=== PATIENT | male | born 1975 | race American Indian/Alaskan Native ===

== ENCOUNTER 2021-11-11 08:41 | Emergency (ER) | payer SELFPAY ==
[2021-11-11] MEDS ORDERED: ALBUTEROL 2.5 MG/3 ML NEBU IH ONE (08:54)
[2021-11-11] MEDS ORDERED: FUROSEMIDE 40 MG/4 ML INJ IV ONE (08:54)
[2021-11-11] MEDS ORDERED: IPRATROPIUM 0.02% NEBU 2.5 ML IH ONE (08:54)
[2021-11-11 09:37] LABS: Basophils # (Auto) 0.1 K/mm3 (0.0-0.1); Basophils % (Auto) 0.7 % (0.0-1.8); Eosinophils # (Auto) 0.1 K/mm3 (0.0-0.4); Eosinophils % (Auto) 0.8 % (0.0-4.3); Hematocrit 45.1 % (35.5-45.6); Hemoglobin 14.9 gm/dl (11.8-15.2); Lymphocytes # (Auto) 1.5 K/mm3 (1.2-5.4); Lymphocytes % (Auto) 16.9 % (13.4-35.0); Mean Corpuscular HGB Conc 33 % (32-34); Mean Corpuscular Volume 82 fl (84-94); Monocytes # (Auto) 0.7 K/mm3 (0.0-0.8); Monocytes % (Auto) 7.7 % (0.0-7.3); Platelet Count 235 K/mm3 (140-440); Red Blood Count 5.51 M/mm3 (3.65-5.03)
[2021-11-11 09:55] LABS: INR 1.09 (0.87-1.13)
[2021-11-11 09:59] LABS: Creatine Kinase MB 4.5 ng/mL (0.0-4.0)
[2021-11-11 10:01] LABS: Alanine Aminotransferase 53 units/L (7-56); Albumin 3.9 g/dL (3.9-5); BUN/Creatinine Ratio 11; Blood Urea Nitrogen 11 mg/dL (9-20); Calcium 8.9 mg/dL (8.4-10.2); Hemolysis Index 3
--- NOTE | 2021-11-11 10:06 | XRay Report ---
CHEST 1 VIEW 11/11/2021 9:10 AM INDICATION / CLINICAL INFORMATION: Dyspnea. COMPARISON: None available. FINDINGS: SUPPORT DEVICES: None. HEART / MEDIASTINUM: There is mild to moderate generalized enlargement of the cardiopericardial silho uette. There is prominence of the central pulmonary vessels. LUNGS / PLEURA: Interstitial lung markings are diffusely increased, right greater than left. There is more confluent parenchymal opacity in the lower lung zones medially, greater on the right. No signif icant pleural effusion. No pneumothorax. ADDITIONAL FINDINGS: No significant additional findings. IMPRESSION: Enlargement of the cardiopericardial silhouette with associated congestive heart failure/ asymmetric pulmonary edema, right greater than left. Signer Name: Trevor Mcknight MD Signed: 11/11/2021 10:01 AM Workstation Name: [id number]
[2021-11-11 10:17] LABS: Bilirubin,Urine NEG (Negative); Blood,Urine NEG (Negative); Color,Urine Straw (Yellow); Urobilinogen,Urine < 2.0 mg/dL (<2.0)
[2021-11-11] MEDS ORDERED: METOPROLOL TARTRATE 5 MG/5 ML INJ IV ONE (10:21)
[2021-11-11 10:25] LABS: Amphetamine Screen,Urine Negative; Benzodiazepines Screen,Urine Negative; Cannabinoid Screen,Urine Negative; Cocaine Screen,Urine Negative; Methadone Screen,Urine Negative; Opiate Screen,Urine Negative
[2021-11-11 10:47] LABS: Bacteria,Urine 1+ /HPF (Negative); Mucus,Urine FEW /HPF
[2021-11-11] MEDS ORDERED: hydrALAZINE 20 MG/1 ML INJ IV ONE (12:40)
--- NOTE | 2021-11-11 13:33 | Emergency Department Report ---
ED General Adult HPI - General Chief complaint: Dyspnea/Respdistress Stated complaint: RUSS PUI?: No Time Seen by Provider: 11/11/21 08:54 Source: patient, EMS Mode of arrival: Stretcher Limitations: No Limitations - History of Present Illness Initial comments: PT ARRIVING FROM HOME FOR SOB, 91% RA. LABORED. BGL 222 pt has HTN and CHF but non complinat with meds no chets [ain n wekaness no stroke like symtpoms -: Gradual, days(s) Severity scale (0 -10): 0 Consistency: constant Improves with: none Worsens with: none Associated Symptoms: chest pain, shortness of breath Treatments Prior to Arrival: none - Related Data Previous Rx's Medication Instructions Recorded Last Taken Type Furosemide [Lasix] 20 mg PO QDAY #30 tablet 11/11/21 Unknown Rx carvediloL [Coreg] 3.125 mg PO BID #30 tablet 11/11/21 Unknown Rx lisinopriL [Lisinopril] 20 mg PO DAILY #30 11/11/21 Unknown Rx Allergies Allergy/AdvReac Type Severity Reaction Status Date / Time Penicillins AdvReac Unknown Verified 11/11/21 10:04 ED Review of Systems ROS: Stated complaint: RUSS Other details as noted in HPI Constitutional: denies: chills, fever Eyes: denies: eye pain, eye discharge, vision change ENT: denies: ear pain, throat pain Respiratory: denies: cough, shortness of breath, wheezing Cardiovascular: denies: chest pain, palpitations Endocrine: no symptoms reported Gastrointestinal: denies: abdominal pain, nausea, diarrhea Genitourinary: denies: urgency, dysuria Musculoskeletal: denies: back pain, joint swelling, arthralgia Skin: denies: rash, lesions Neurological: denies: headache, weakness, paresthesias Psychiatric: denies: anxiety, depression Hematological/Lymphatic: denies: easy bleeding, easy bruising ED Past Medical Hx - Past Medical History Hx Hypertension: Yes Hx Congestive Heart Failure: Yes Hx Diabetes: Yes (type 2) Additional medical history: right leg ABK - Surgical History Past Surgical History?: Yes - Social History Smoking Status: Never Smoker Substance Use Type: Marijuana - Medications Home Medications: Home Medications Medication Instructions Recorded Confirmed Last Taken Type Furosemide [Lasix] 20 mg PO QDAY #30 tablet 11/11/21 Unknown Rx carvediloL [Coreg] 3.125 mg PO BID #30 tablet 11/11/21 Unknown Rx lisinopriL [Lisinopril] 20 mg PO DAILY #30 11/11/21 Unknown Rx ED Physical Exam - General Limitations: No Limitations General appearance: alert, obese - Head Head exam: Present: atraumatic, normocephalic - Eye Eye exam: Present: normal appearance - ENT ENT exam: Present: mucous membranes moist - Neck Neck exam: Present: normal inspection - Respiratory Respiratory exam: Present: normal lung sounds bilaterally, rales. Absent: respiratory distress - Cardiovascular Cardiovascular Exam: Present: normal rhythm, tachycardia. Absent: systolic murmur, diastolic murmur, rubs, gallop - GI/Abdominal GI/Abdominal exam: Present: soft, normal bowel sounds - Rectal Rectal exam: Present: deferred - Extremities Exam Extremities exam: Present: normal inspection, pedal edema - Back Exam Back exam: Present: normal inspection - Neurological Exam Neurological exam: Present: alert, oriented X3 - Psychiatric Psychiatric exam: Present: normal affect, normal mood - Skin Skin exam: Present: warm, dry, intact, normal color. Absent: rash ED Course Vital Signs 11/11/21 11/11/21 11/11/21 08:45 08:59 09:15 Temperature 99.2 F 98.5 F Pulse Rate 115 H 113 H 114 H Respiratory 22 25 H 23 Rate Blood Pressure 190/125 190/125 Blood Pressure 193/124 190/125 [Left] O2 Sat by Pulse 100 97 98 Oximetry 11/11/21 11/11/21 11/11/21 09:30 09:45 10:00 Temperature Pulse Rate 114 H 110 H 118 H Respiratory 18 20 45 H Rate Blood Pressure 190/125 185/124 185/124 Blood Pressure [Left] O2 Sat by Pulse 97 96 96 Oximetry 11/11/21 11/11/21 11/11/21 10:15 10:30 10:34 Temperature Pulse Rate 110 H 107 H 96 H Respiratory 21 24 Rate Blood Pressure 182/126 182/126 177/120 Blood Pressure [Left] O2 Sat by Pulse 97 96 Oximetry 11/11/21 11/11/21 11/11/21 10:45 11:00 11:15 Temperature Pulse Rate 105 H 104 H 96 H Respiratory 22 26 H 19 Rate Blood Pressure 177/120 177/120 170/115 Blood Pressure [Left] O2 Sat by Pulse 96 98 96 Oximetry 11/11/21 11/11/21 11/11/21 11:30 11:45 12:00 Temperature Pulse Rate 98 H 100 H 95 H Respiratory 19 27 H 18 Rate Blood Pressure 170/115 173/123 173/123 Blood Pressure [Left] O2 Sat by Pulse 95 95 97 Oximetry 11/11/21 11/11/21 11/11/21 12:31 12:45 13:01 Temperature Pulse Rate 98 H Respiratory 18 Rate Blood Pressure 184/126 184/129 190/135 Blood Pressure [Left] O2 Sat by Pulse 96 97 99 Oximetry 11/11/21 11/11/21 13:03 13:15 Temperature Pulse Rate 98 H 100 H Respiratory 29 H Rate Blood Pressure 190/135 192/121 Blood Pressure [Left] O2 Sat by Pulse 99 Oximetry ED Medical Decision Making - Lab Data Result diagrams: 11/11/21 09:12 11/11/21 09:12 - EKG Data -: EKG Interpreted by Ne EKG shows normal: sinus rhythm Rate: tachycardia - EKG Data Interpretation: nonspecific ST-T wave ama - Radiology Data Radiology results: report reviewed, image reviewed - Medical Decision Making work up showed CHF with cardiomegaly , lasix given and rt , lopressor and hydralazine given , pt doens;t take his meds and doesn;t rememebr which ones, will start empiric HF treatment with follow up with [facility] , vss no distress imrpoved back to [facility] Critical care attestation.: If time is entered above; I have spent that time in minutes in the direct care of this critically ill patient, excluding procedure time. ED Disposition Clinical Impression: SOB (shortness of breath), CHF exacerbation, Non compliance w medication regimen, Uncontrolled hypertension Disposition: 01 HOME / SELF CARE / HOMELESS Is pt being admited?: No Does the pt Need Aspirin: No Condition: Stable Instructions: Hypertension (ED), Shortness of Breath, Adult, [id number], Heart Failure, Self Care, Managing Your Hypertension Prescriptions: carvediloL [Coreg] 3.125 mg PO BID #30 tablet Furosemide [Lasix] 20 mg PO QDAY #30 tablet lisinopriL [Lisinopril] 20 mg PO DAILY #30 Referrals: PRIMARY CARE, [Primary Care Provider] - 3-5 Days
[2021-11-11 13:49] VITALS: BP 189/117
--- NOTE | 2021-11-12 10:02 | Electrocardiograph Report ---
[facility] Test Date: 2021-11-11 Test Time: 09:23:19 Pat Name: SNEHA ARZOLA Department: Room: Gender: M [employer]: AURA : 1975 Requested By: HETAL YOUNG Order Number: [id number] Reading MD: Maicol Aldrich Measurements Intervals [place] Rate: 111 P: 61 [place]: 150 QRS: -49 QRSD: 95 T: 71 QT: 359 QTc: 489 Interpretive Statements Sinus tachycardia Left atrial enlargement Left anterior fascicular block Anteroseptal infarct, age indeterminate No previous ECG available for comparison Electronically Signed On 11-12-2021 10:01:44 EDT by Maicol Aldrich
== END 2021-11-11 13:53 | disposition home or self-care (01) ==
LOC: ED 08:41
DX: R06.02 Shortness of breath (principal); Z91.14 Patient's other noncompliance with medication regimen; I11.0 Hypertensive heart disease with heart failure; I50.9 Heart failure, unspecified; E11.9 Type 2 diabetes mellitus without complications; Z98.890 Other specified postprocedural states; Z88.0 Allergy status to penicillin
CPT/HCPCS: 36415; 71045; 80053; 80307; 81001; 82550; 82553; 83690; 83735; 83880; 84484; 85025; 85610; 93005; 94640; 96374; 96375; 99284; J0360; J1940